=== PATIENT | female | born 1980 | race Asian ===

== ENCOUNTER 2025-01-02 01:12 | Emergency (ER) | payer MEDICAID, SELFPAY ==
[2025-01-02 01:24] VITALS: BP 169/103; PULSE 112; RESP 18; TEMP 37.1; O2SAT 95; BMI 27.4
--- NOTE | 2025-01-02 01:33 | XR_ITS ---
Examination: PA lateral chest 2 views Technique: Upright PA lateral chest 2 views Exam date and time: January 02, 2025 at 1358 hrs. Indications: Coughing bodyaches 2 days. Findings: Mild prominence of ventricle Suspicious for early pneumonia right base medially No pulmonary edema Impression: Suspicious for early right base pneumonia
--- NOTE | 2025-01-02 01:34 | PD.EDRME ---
Rapid Medical Screening Exam RME Arrival date/time: 01/02/25 01:12 44-year-old female past medical history of hypertension presents emergency department complaining of headache, cough, and bodyaches for 2 days. Chief Complaint: Flu Like Symptoms Time Seen by Provider: 01/02/25 01:24 Vital signs: Vital Signs Temperature 98.8 F 01/02/25 01:24 Pulse Rate 112 H 01/02/25 01:24 Respiratory Rate 18 01/02/25 01:24 Blood Pressure 169/103 H 01/02/25 01:24 Pulse Oximetry (%) 95 01/02/25 01:24 Oxygen Delivery Method Room Air 01/02/25 01:24 Vital signs reviewed by provider: Yes
[2025-01-02] MEDS: ACETAMINOPHEN 500 MG TABLET 1000 MG PO (01:47)
--- NOTE | 2025-01-02 03:07 | PD.EDURI ---
Upper Respiratory Inf. RME/HPI General Chief Complaint: Flu Like Symptoms Stated Complaint: COUGHING,DIFF BREATHING Time Seen by Provider: 01/02/25 01:24 Source: patient Arrival date/time: 01/02/25 01:12 44-year-old female past medical history of hypertension presents emergency department complaining of headache, cough, and bodyaches for 2 days. Patient denies any fever, vomiting, sore throat, or any other associated symptom. Mode of arrival: ambulatory Limitations: no limitations RME / HPI RME / HPI Narrative: 01/02/25 01:12 44-year-old female past medical history of hypertension presents emergency department complaining of headache, cough, and bodyaches for 2 days. Related Data Previous Rx's ?Medication ?Instructions ?Recorded ondansetron 4 mg disintegrating 4 mg PO Q8H PRN nausea and 04/17/19 tablet vomiting #14 tabs sumatriptan succinate 25 mg tablet See Rx Instructions PO .COMPLEX 04/17/19 #14 tabs meloxicam 7.5 mg tablet 7.5 mg PO QDAY #10 tabs 05/07/23 azithromycin 250 mg tablet See Rx Instructions PO .COMPLEX #6 01/02/25 tabs Allergies Allergy/AdvReac Type Severity Reaction Status Date / Time No Known Allergies Allergy Verified 12/25/23 11:27 Review of Systems Review of Systems Systems Reviewed: All systems reviewed, normal except as documented Constitutional Constitutional: Reports system reviewed and no additional complaints, except as documented, Reports body ache(s), Denies chills, Denies fever(s) and Reports headache(s) Eyes Eyes: Reports system reviewed and no additional complaints, except as documented and Denies change in vision ENT Ears, Nose, Mouth, and Throat: Reports system reviewed and no additional complaints, except as documented, Denies disequilibrium, Denies dizziness, Reports headache(s), Denies sore throat and Denies vertigo Cardiovascular Cardiovascular: Reports system reviewed and no additional complaints, except as documented, Denies chest pain and Denies dyspnea Respiratory Respiratory: Reports system reviewed and no additional complaints, except as documented, Denies chest congestion, Reports cough and Denies dyspnea Gastrointestinal Gastrointestinal: Reports system reviewed and no additional complaints, except as documented, Denies abdominal pain, Denies nausea and Denies vomiting Musculoskeletal Musculoskeletal: Reports system reviewed and no additional complaints, except as documented, Denies abnormal gait and Denies arthralgias Integumentary/Breasts Skin/Breast: Reports system reviewed and no additional complaints, except as documented, Denies erythema, Denies rash and Denies wounds Neurologic Neurologic: Reports system reviewed and no additional complaints, except as documented, Denies abnormal gait, Denies disequilibrium, Denies dizziness, Reports headache(s) and Denies vertigo Past Medical History Past Medical History NEUROLOGIC: Positive Neurological Disorders and Migraine CARDIAC: Negative Congestive Heart Failure RESPIRATORY: Negative Chronic Obstructive Pulmonary Disease (COPD) GENITOURINARY: Negative Renal Disease ENDOCRINE: Negative Diabetes Mellitus Type 1 or Diabetes Mellitus Type 2 Social History SMOKING STATUS: Never smoker ED Exam General Limitations: Present no limitations General appearance: Present alert and in no apparent distress Head Head exam: Present atraumatic Eye Eye exam: Present normal appearance, PERRL and EOMI ENT ENT exam: Present normal exam, normal oropharynx and mucous membranes moist Neck Neck exam: Present normal inspection, full ROM and trachea midline Chest Chest inspection: Present normal inspection and symmetric chest wall rise Respiratory Respiratory exam: Present normal lung sounds bilaterally Cardiovascular Cardiovascular exam: Present regular rate, normal rhythm and normal heart sounds Abdominal Exam Abdominal exam: Present soft and normal bowel sounds Extremities Exam Extremities exam: Present normal inspection and full ROM Back Exam Back exam: Present normal inspection and full ROM Neurological Exam Neurological exam: Present alert, oriented X3 and CN II-XII intact Psychiatric Psychiatric exam: Present normal affect and normal mood Skin Skin exam: Present warm, dry, intact and normal color Course Quality Measures none Orders Category Date Time Status Bedside COVID-19 Antigen Test NOW Care 01/02/25 01:33 Active Bedside Influenza A&B Antigen Test NOW Care 01/02/25 01:33 Completed XR chest 2V Stat Exams 01/02/25 01:33 Taken Acetaminophen Tab [Tylenol ES Tab] Med 01/02/25 01:33 Discontinued 1,000 mg PO X1 ONE Ketorolac Inj [Toradol Inj] Med 01/02/25 01:33 Discontinued 30 mg IM X1 ONE Vital Signs Vital signs: Vital Signs Temperature 98.8 F 01/02/25 01:24 Pulse Rate 112 H 01/02/25 01:24 Respiratory Rate 18 01/02/25 01:24 Blood Pressure 169/103 H 01/02/25 01:24 Pulse Oximetry (%) 95 01/02/25 01:24 Oxygen Delivery Method Room Air 01/02/25 01:24 95% room air within normal limits Upper Respiratory Infection MDM Narrative MDM Narrative:: 44-year-old female past medical history of hypertension presents emergency department complaining of headache, cough, and bodyaches for 2 days. Patient denies any fever, vomiting, sore throat, or any other associated symptom. Influenza and COVID-negative. Chest x-ray right lower lobe pneumonia based on my interpretation. Will treat patient with oral antibiotic and instructed to have close follow-up with primary care provider in 2 to 3 days. Instructed to return to emergency department for any worsening symptoms or as needed. Patient data External records reviewed:: [facility] previous records Clinical information provided by:: patient Social determinants that could affect healthcare access:: none Patient has the following chronic illnesses:: Hypertensive How is presenting disease/condition affected by chronic disease/condition?: uneffected by Evaluation data The following diagnostics were reviewed and interpreted by me:: lab results and radiology exam(s) Lab and/or radiology exams considered but not ordered:: Ordered Interpretation Summary: Interpreted by me Medications / Prescriptions Medications or Prescriptions considered but not ordered:: Ordered Medication administrations:: Medication Administration History Discontinued Medications Acetaminophen (Acetaminophen 500 Mg Tablet) 1,000 mg PO X1 ONE Stop: 01/02/25 01:34 Last Admin: 01/02/25 01:47 Dose: 1,000 mg Documented By: YARA Ketorolac Tromethamine (Ketorolac Inj 60 Mg/2 Ml Vial) 30 mg IM X1 ONE Stop: 01/02/25 01:34 Last Admin: 01/02/25 01:48 Dose: Not Given Documented By: YARA Non-Admin Reason: Patient Refused Given Consultations Consultation(s) initiated? (list below): No Diagnosis Upper Respiratory Differential Diagnosis: upper respiratory infection, otitis media, sinusitis, viral infection, bronchitis, influenza and pharyngitis Most likely diagnosis given after review of the tests above:: Pneumonia Admission Indicated Admission indicated?: not indicated Admission Request Was there a request for admission?: No Disposition Plan Disposition Plan: Discharge Discharge Attestation Discharge Attestation: The patient and all family members were given an opportunity to ask questions and understood the discharge instructions. Discharge instructions specifically effects, indications for sooner follow up or return to the emergency department, and the expected course of current diagnosis. Patient condition: Stable Discharge Plan Plan Patient Disposition: HOME (Self Care) Disposition Comment: Stable Prescriptions/Referrals Prescriptions/Med Rec: New azithromycin 250 mg tablet See Rx Instructions .ROUTE .COMPLEX Qty: 6 0RF Rx Instructions: For 250 mg dose pack: take 500 mg today (day 1), then 250 mg for 4 days (days 2-5) No Action sumatriptan succinate 25 mg tablet See Rx Instructions .ROUTE .COMPLEX Qty: 14 0RF Rx Instructions: take 1 tab at onset of headache; if no relief may repeat 1 tab in 2hr; max = 4 tabs/day (24hr) ondansetron 4 mg tablet,disintegrating 4 mg PO Q8H PRN (Reason: nausea and vomiting) Qty: 14 0RF meloxicam 7.5 mg tablet 7.5 mg PO QDAY Qty: 10 0RF Problem List Clinical Impression: Pneumonia Patient/Caregiver Discharge Instructions Discharge Activity: activity as tolerated Education Materials: ED Pneumonia (Adult) Additional Instructions: Drink plenty of fluids and get plenty of rest. Take Tylenol and ibuprofen as needed for fever or pain. Take antibiotics as prescribed. Follow-up with primary care provider in 2 to 3 days. Return to emergency department for any worsening symptoms or as needed. Print Language: Tajik Stand Alone Forms: Moira Award Info., Patient Portal Info Letter PA/INTERLINE CLERK Supervising Physician PA/INTERLINE CLERK Supervising Physician: Dr. Cornejo
== END 2025-01-02 03:22 | disposition home or self-care (01) ==
LOC: SERX 03:23
PROVIDERS: Emergency Provider Emergency Medicine
DX: J18.9 Pneumonia, unspecified organism (principal); I10 Essential (primary) hypertension
CPT/HCPCS: 71046; 87400; 87811; 99283; A9270

== ENCOUNTER 2025-01-05 02:33 | Emergency (ER) | payer MEDICAID, SELFPAY ==
[2025-01-05 02:33] VITALS: BMI 31.3
[2025-01-05 02:45] VITALS: BP 173/132; BP 188/155; PULSE 89; RESP 18; TEMP 36.7; O2SAT 98
--- NOTE | 2025-01-05 02:53 | PD.EDSOB ---
ED SOB =RME/HPI General Chief Complaint: Shortness of Breath/Dyspnea Stated Complaint: DIFF BREATHING Time Seen by Provider: 01/05/25 02:51 Arrival date/time: 01/05/25 02:33 44F with history of HTN presents to ED with cough and some SOB. Patient was diagnosed with PNA here several days ago and given a Z-sylvia, which patient has been taking. Patient denies CP. Limitations: no limitations Related Data Previous Rx's ?Medication ?Instructions ?Recorded ondansetron 4 mg disintegrating 4 mg PO Q8H PRN nausea and 04/17/19 tablet vomiting #14 tabs sumatriptan succinate 25 mg tablet See Rx Instructions PO .COMPLEX 04/17/19 #14 tabs meloxicam 7.5 mg tablet 7.5 mg PO QDAY #10 tabs 05/07/23 azithromycin 250 mg tablet See Rx Instructions PO .COMPLEX #6 01/02/25 tabs albuterol sulfate 90 mcg/actuation 2 puff inhalation Q6H PRN 01/05/25 aerosol inhaler (Ventolin HFA) shortness of breath or wheezing #8.5 grams Allergies Allergy/AdvReac Type Severity Reaction Status Date / Time No Known Allergies Allergy Verified 01/05/25 02:35 Review of Systems Review of Systems Systems Reviewed: All systems reviewed, normal except as documented Constitutional Constitutional: Reports system reviewed and no additional complaints, except as documented, Denies fever(s) and Denies headache(s) ENT Ears, Nose, Mouth, and Throat: Denies disequilibrium and Denies headache(s) Cardiovascular Cardiovascular: Reports system reviewed and no additional complaints, except as documented, Denies chest pain and Reports dyspnea Respiratory Respiratory: Reports system reviewed and no additional complaints, except as documented, Reports as per HPI, Reports cough and Reports dyspnea Gastrointestinal Gastrointestinal: Reports system reviewed and no additional complaints, except as documented, Denies abdominal pain, Denies nausea and Denies vomiting Neurologic Neurologic: Reports system reviewed and no additional complaints, except as documented, Denies confusion, Denies disequilibrium and Denies headache(s) Psychiatric Psychiatric: Denies confusion Past Medical History Past Medical History NEUROLOGIC: Positive Neurological Disorders and Migraine CARDIAC: Negative Congestive Heart Failure RESPIRATORY: Negative Chronic Obstructive Pulmonary Disease (COPD) GENITOURINARY: Negative Renal Disease ENDOCRINE: Negative Diabetes Mellitus Type 1 or Diabetes Mellitus Type 2 Social History SMOKING STATUS: Never smoker ED Exam General Limitations: Present no limitations General appearance: Present alert and in no apparent distress Head Head exam: Present atraumatic Eye Eye exam: Present normal appearance, PERRL and EOMI ENT ENT exam: Present normal exam, normal oropharynx and mucous membranes moist Neck Neck exam: Present normal inspection, full ROM and trachea midline Chest Chest inspection: Present normal inspection and symmetric chest wall rise Respiratory Respiratory exam: Present normal lung sounds bilaterally Cardiovascular Cardiovascular exam: Present regular rate, normal rhythm and normal heart sounds Abdominal Exam Abdominal exam: Present soft and normal bowel sounds Extremities Exam Extremities exam: Present normal inspection and full ROM Back Exam Back exam: Present normal inspection and full ROM Neurological Exam Neurological exam: Present alert, oriented X3 and CN II-XII intact Psychiatric Psychiatric exam: Present normal affect and normal mood Skin Skin exam: Present warm, dry, intact and normal color Course Quality Measures none Orders Category Date Time Status EKG (ED ONLY) *Do not use* NOW Care 01/05/25 02:56 Completed EKG (ED Only) Stat Exams 01/05/25 02:56 Ordered Albuterol/Ipratr Rt Chioma [Duoneb Rt Chioma] Med 01/05/25 02:51 Discontinued 3 ml INH X1 ONE Dexamethasone Inj [Decadron Inj] Med 01/05/25 02:51 Discontinued 10 mg PO X1 ONE cefTRIAXone [Rocephin] 1,000 mg Med 01/05/25 02:51 Discontinued Lidocaine 1% 20 ml [Xylocaine 1% 20 ML] 2.1 ml IM X1 Vital Signs Vital signs: Vital Signs Temperature 98.0 F 01/05/25 02:45 Pulse Rate 89 01/05/25 02:45 Respiratory Rate 18 01/05/25 02:45 Blood Pressure 188/155 H 01/05/25 02:45 Pulse Oximetry (%) 98 01/05/25 02:45 Oxygen Delivery Method Room Air 01/05/25 02:45 O2 at 98% on RA and WNLs Shortness of Breath / Dyspnea MDM Narrative MDM Narrative:: 44F with history of HTN presents to ED with cough and some SOB. Patient was diagnosed with PNA here several days ago and given a Z-sylvia, which patient has been taking. Patient denies CP. Physical exam reveals clear ENT and lungs. Patient is afebrile, calm, and alert. Normal WOB. EKG is NSR with L-axis deviation, which was present on previous EKG. Meds improved symptoms. Given early PNA, will reinforce with Rocephin but no additional oupatient ABX. Patient data External records reviewed:: [facility] previous records Clinical information provided by:: patient Social determinants that could affect healthcare access:: none Patient has the following chronic illnesses:: HTN How is presenting disease/condition affected by chronic disease/condition?: exacerbated by Evaluation data The following diagnostics were reviewed and interpreted by me:: EKG tracing(s) Lab and/or radiology exams considered but not ordered:: ordered Interpretation Summary: above Medications / Prescriptions Medications or Prescriptions considered but not ordered:: ordered Medication administrations:: Medication Administration History Discontinued Medications Albuterol/Ipratropium (Albuterol/Ipratropium (Duoneb) Rt Chioma 3 Ml Nebu) 3 ml INH X1 ONE Stop: 01/05/25 02:52 Last Admin: 01/05/25 03:16 Dose: 3 ml Documented By: NE Ceftriaxone Sodium 1,000 mg/ (Lidocaine HCl 2.1 ml) 0 mg IM X1 ONE Stop: 01/05/25 02:52 Last Admin: 01/05/25 03:14 Dose: 1,000 mg Documented By: CVL Dexamethasone Sodium Phosphate (Dexamethasone Sod Phos Inj 10 Mg/Ml Vial) 10 mg PO X1 ONE Stop: 01/05/25 02:52 Last Admin: 01/05/25 03:14 Dose: 10 mg Documented By: CVL above Consultations Consultation(s) initiated? (list below): No Diagnosis Shortness of Breath Differential Diagnosis: acute exacerbation of chronic obstructive airways disease, congestive heart failure, community acquired pneumonia, asthma with exacerbation and pulmonary embolism Most likely diagnosis given after review of the tests above:: CAP Admission Indicated Admission indicated?: not indicated Admission Request Was there a request for admission?: No Disposition Plan Disposition Plan: Discharge Discharge Attestation Discharge Attestation: The patient and all family members were given an opportunity to ask questions and understood the discharge instructions. Discharge instructions specifically effects, indications for sooner follow up or return to the emergency department, and the expected course of current diagnosis. Patient condition: Stable Discharge Plan Plan Patient Disposition: HOME (Self Care) Disposition Comment: Stable Prescriptions/Referrals Prescriptions/Med Rec: New albuterol sulfate [Ventolin HFA] 90 mcg/actuation HFA aerosol inhaler 2 puff inhalation Q6H PRN (Reason: shortness of breath or wheezing) Qty: 8.5 0RF Rx Instructions: w/ education please No Action sumatriptan succinate 25 mg tablet See Rx Instructions .ROUTE .COMPLEX Qty: 14 0RF Rx Instructions: take 1 tab at onset of headache; if no relief may repeat 1 tab in 2hr; max = 4 tabs/day (24hr) ondansetron 4 mg tablet,disintegrating 4 mg PO Q8H PRN (Reason: nausea and vomiting) Qty: 14 0RF meloxicam 7.5 mg tablet 7.5 mg PO QDAY Qty: 10 0RF azithromycin 250 mg tablet See Rx Instructions .ROUTE .COMPLEX Qty: 6 0RF Rx Instructions: For 250 mg dose pack: take 500 mg today (day 1), then 250 mg for 4 days (days 2-5) Referrals: Oli Sheth MD [Primary Care Provider] - In 1 week Problem List Clinical Impression: Community acquired pneumonia Patient/Caregiver Discharge Instructions Education Materials: ED Pneumonia (Adult) Additional Instructions: Please follow-up with PCP within 24-48 hours and return immediately if symptoms worsen. Ibuprofen/Tylenol can be used simultaneously for greater fever/pain control. Benadryl is good for cough, congestion, and sleep. Finish ABX. Print Language: Armenian Stand Alone Forms: Patient Portal Info Letter SASCHA/RAVEN Supervising Physician SASCHA/RAVEN Supervising Physician: Dr. Stewart
[2025-01-05] MEDS: DEXAMETHASONE SOD PHOS INJ 10 MG/ML VIAL PO (03:14)
[2025-01-05] MEDS: cefTRIAXone 1,000 MG, LIDOCAINE 1% 20 ML 2.1 ML IM (03:14)
[2025-01-05] MEDS: ALBUTEROL/IPRATROPIUM (Duoneb) RT SOL 3 ML NEBU INH (03:16)
[2025-01-05 03:18] VITALS: PULSE 87; RESP 20; O2SAT 98
[2025-01-05 03:42] VITALS: RESP 18
== END 2025-01-05 03:43 | disposition home or self-care (01) ==
PROVIDERS: Emergency Provider Emergency Medicine; PCP Family Medicine
DX: J18.9 Pneumonia, unspecified organism (principal); I10 Essential (primary) hypertension
CPT/HCPCS: 93005; 94640; 96372; 99283; A9270; J0696; J1100; J3490

== ENCOUNTER 2025-07-06 23:10 | Emergency (ER) | payer MEDICAID, SELFPAY ==
[2025-07-06 23:12] VITALS: BMI 29.2
[2025-07-06 23:29] VITALS: BP 168/96; PULSE 103; RESP 22; TEMP 37.1; O2SAT 97
--- NOTE | 2025-07-06 23:36 | XR_ITS ---
Examination: PA lateral chest 2 views TECHNIQUE: Upright PA and lateral chest 2 views Date and time: July 07, 2025 0015 hours INDICATION: Cough and shortness breath beginning 3 days ago. FINDINGS: Minor prominence left ventricle. No pneumonia or pulmonary edema. The osseous structures are intact IMPRESSION: No active disease
--- NOTE | 2025-07-07 05:04 | PD.EDURI ---
Upper Respiratory Inf. RME/HPI General Chief Complaint: Flu Like Symptoms Stated Complaint: COUGH SOB Time Seen by Provider: 07/06/25 23:52 Arrival date/time: 07/06/25 23:10 45F with no significant PMH presents to ED with several days of cough, intermittent SOB, and fevers/chills. While waiting in waiting room, patient developed a nosebleed. Limitations: no limitations Related Data Previous Rx's ?Medication ?Instructions ?Recorded ondansetron 4 mg disintegrating 4 mg PO Q8H PRN nausea and 04/17/19 tablet vomiting #14 tabs sumatriptan succinate 25 mg tablet See Rx Instructions PO .COMPLEX 04/17/19 #14 tabs meloxicam 7.5 mg tablet 7.5 mg PO QDAY #10 tabs 05/07/23 azithromycin 250 mg tablet See Rx Instructions PO .COMPLEX #6 01/02/25 tabs albuterol sulfate 90 mcg/actuation 2 puff inhalation Q6H PRN 01/05/25 aerosol inhaler (Ventolin HFA) shortness of breath or wheezing #8.5 grams Allergies Allergy/AdvReac Type Severity Reaction Status Date / Time No Known Allergies Allergy Verified 07/06/25 23:15 Review of Systems Review of Systems Systems Reviewed: All systems reviewed, normal except as documented Constitutional Constitutional: Reports system reviewed and no additional complaints, except as documented, Reports as per HPI, Reports chills, Reports fever(s) and Denies headache(s) ENT Ears, Nose, Mouth, and Throat: Denies disequilibrium and Denies headache(s) Cardiovascular Cardiovascular: Reports system reviewed and no additional complaints, except as documented, Denies chest pain and Reports dyspnea Respiratory Respiratory: Reports system reviewed and no additional complaints, except as documented, Reports as per HPI, Reports cough and Reports dyspnea Gastrointestinal Gastrointestinal: Reports system reviewed and no additional complaints, except as documented, Denies abdominal pain, Denies nausea and Denies vomiting Neurologic Neurologic: Reports system reviewed and no additional complaints, except as documented, Denies confusion, Denies disequilibrium and Denies headache(s) Psychiatric Psychiatric: Denies confusion Past Medical History Past Medical History NEUROLOGIC: Positive Neurological Disorders and Migraine CARDIAC: Negative Congestive Heart Failure RESPIRATORY: Negative Chronic Obstructive Pulmonary Disease (COPD) GENITOURINARY: Negative Renal Disease ENDOCRINE: Negative Diabetes Mellitus Type 1 or Diabetes Mellitus Type 2 Social History SMOKING STATUS: Never smoker ED Exam General Limitations: Present no limitations General appearance: Present alert and in no apparent distress Head Head exam: Present atraumatic Eye Eye exam: Present normal appearance, PERRL and EOMI ENT ENT exam: Present normal oropharynx and mucous membranes moist Expanded ENT Exam Nasal speculum exam: Right: epistaxis Neck Neck exam: Present normal inspection, full ROM and trachea midline Chest Chest inspection: Present normal inspection and symmetric chest wall rise Respiratory Respiratory exam: Present normal lung sounds bilaterally Cardiovascular Cardiovascular exam: Present regular rate, normal rhythm and normal heart sounds Abdominal Exam Abdominal exam: Present soft and normal bowel sounds Extremities Exam Extremities exam: Present normal inspection and full ROM Back Exam Back exam: Present normal inspection and full ROM Neurological Exam Neurological exam: Present alert, oriented X3 and CN II-XII intact Psychiatric Psychiatric exam: Present normal affect and normal mood Skin Skin exam: Present warm, dry, intact and normal color Course Quality Measures none Orders Category Date Time Status Bedside COVID-19 Antigen Test NOW Care 07/06/25 23:53 Completed Bedside Influenza A&B Antigen Test NOW Care 07/06/25 23:53 Completed XR chest 2V Stat Exams 07/06/25 23:36 Taken Vital Signs Vital signs: Vital Signs Temperature 98.8 F 07/06/25 23:29 Pulse Rate 103 H 07/06/25 23:29 Respiratory Rate 22 H 07/06/25 23:29 Blood Pressure 168/96 H 07/06/25 23:29 Pulse Oximetry (%) 97 07/06/25 23:29 Oxygen Delivery Method Room Air 07/06/25 23:29 O2 at 97% on RA and WNLs Upper Respiratory Infection MDM Narrative MDM Narrative:: 45F with no significant PMH presents to ED with several days of cough, intermittent SOB, and fevers/chills. While waiting in waiting room, patient developed a nosebleed. Physical exam reveals R nosebleed, but otherwise clear oropharynx and lungs. Normal WOB. Patient is afebrile, calm, and alert. Swabs neg. Wet CXR no gross PNA pending official report. Nosebleed stopped with pressure. Patient data External records reviewed:: [facility] previous records Clinical information provided by:: patient Social determinants that could affect healthcare access:: none Patient has the following chronic illnesses:: none How is presenting disease/condition affected by chronic disease/condition?: no chronic disease Evaluation data The following diagnostics were reviewed and interpreted by me:: lab results and radiology exam(s) Lab and/or radiology exams considered but not ordered:: ordered Interpretation Summary: above Medications / Prescriptions Medications or Prescriptions considered but not ordered:: not ordered Medication administrations:: n/a Consultations Consultation(s) initiated? (list below): No Diagnosis Upper Respiratory Differential Diagnosis: upper respiratory infection, croup, otitis media, sinusitis, viral infection, bronchitis, influenza, pharyngitis and other (epistaxis) Most likely diagnosis given after review of the tests above:: epistaxis and URI Admission Indicated Admission indicated?: not indicated Admission Request Was there a request for admission?: No Disposition Plan Disposition Plan: Discharge Discharge Attestation Discharge Attestation: The patient and all family members were given an opportunity to ask questions and understood the discharge instructions. Discharge instructions specifically effects, indications for sooner follow up or return to the emergency department, and the expected course of current diagnosis. Patient condition: Stable Discharge Plan Plan Patient Disposition: HOME (Self Care) Discharge Disposition comment: Stable Prescriptions/Referrals Prescriptions/Med Rec: No Action sumatriptan succinate 25 mg tablet See Rx Instructions .ROUTE .COMPLEX Qty: 14 0RF Rx Instructions: take 1 tab at onset of headache; if no relief may repeat 1 tab in 2hr; max = 4 tabs/day (24hr) ondansetron 4 mg tablet,disintegrating 4 mg PO Q8H PRN (Reason: nausea and vomiting) Qty: 14 0RF meloxicam 7.5 mg tablet 7.5 mg PO QDAY Qty: 10 0RF azithromycin 250 mg tablet See Rx Instructions .ROUTE .COMPLEX Qty: 6 0RF Rx Instructions: For 250 mg dose pack: take 500 mg today (day 1), then 250 mg for 4 days (days 2-5) albuterol sulfate [Ventolin HFA] 90 mcg/actuation HFA aerosol inhaler 2 puff inhalation Q6H PRN (Reason: shortness of breath or wheezing) Qty: 8.5 0RF Rx Instructions: w/ education please Referrals: Oli Sheth MD [Primary Care Provider] - In 1 week Problem List Clinical Impression: Upper respiratory infection, Epistaxis Patient/Caregiver Discharge Instructions Education Materials: ED Epistaxis (Adult), ED URI, Viral, No Abx (Adult) Additional Instructions: Please follow-up with PCP within 24-48 hours and return immediately if symptoms worsen. Ibuprofen/Tylenol can be used simultaneously for greater fever/pain control. Benadryl is good for cough, congestion, and sleep. Print Language: Occitan Stand Alone Forms: Patient Portal Info Letter PA/METAL PUNCH PRESS OPERATOR Supervising Physician PA/METAL P[employer]CH PRESS OPERATOR Supervising Physician: Dr. Christopher
== END 2025-07-07 02:22 | disposition home or self-care (01) ==
PROVIDERS: Emergency Provider Emergency Medicine; PCP Family Medicine
DX: J06.9 Acute upper respiratory infection, unspecified (principal); R04.0 Epistaxis
CPT/HCPCS: 71046; 87400; 87811; 99283

== ENCOUNTER 2025-09-22 00:21 | Emergency (ER) | payer MEDICAID, SELFPAY ==
[2025-09-22 00:32] VITALS: BP 160/114; BP 160/118; PULSE 108; RESP 18; TEMP 36.9; O2SAT 98
--- NOTE | 2025-09-22 00:57 | EDNOTE_ITS ---
ED Epistaxis RME/HPI General Chief complaint: Epistaxis/Nasal Foreign Body Stated complaint: NOSE BLEED X2 HOURS Time Seen by Provider: 09/22/25 00:47 Arrival date/time: 09/22/25 00:21 45F with history of HTN (not on meds) presents to ED with spontaneous nosebleed for several hours. Bleeding stopped prior to arrival in ED. Patient was preemptive cauterization. Limitations: no limitations Related Data Previous Rx's ?Medication ?Instructions ?Recorded ondansetron 4 mg disintegrating 4 mg PO Q8H PRN nausea and 04/17/19 tablet vomiting #14 tabs sumatriptan succinate 25 mg tablet See Rx Instructions PO .COMPLEX 04/17/19 #14 tabs meloxicam 7.5 mg tablet 7.5 mg PO QDAY #10 tabs 04/23 04/14 azithromycin 250 mg tablet See Rx Instructions PO .COM PLEX #6 01/02/25 tabs albuterol sulfate 90 mcg/actuation 2 puff inhalation Q 6H PRN 01/05/25 aerosol inhaler (Ventolin HFA) shortness of breath or wheezing #8.5 grams Allergies Allergy/AdvReac Type Severity Reaction Status Date / Time No Known Allergies Allergy Verified 09/22/25 00:22 Review of Systems Review of Systems Systems Reviewed: All systems reviewed, normal except as documented ENT Ears, Nose, Mouth, and Throat: Reports as per HPI and Reports epistaxis Past Medical History Past Medical History NEUROLOGIC: Positive Neurological Disorders and Migraine CARDIAC: Negative Congestive Heart Failure RESPIRATORY: Negative Chronic Obstructive Pulmonary Disease (COPD) GENITOURINARY: Negative Renal Disease ENDOCRINE: Negative Diabetes Mellitus Type 1 or Diabetes Mellitus Type 2 Social History SMOKING STATUS: Never smoker ED Exam General Limitations: Present no limitations General appearance: Present alert and in no apparent distress Head Head exam: Present atraumatic ENT ENT exam: Present mucous membranes moist Expanded ENT Exam Nasal speculum exam: Bilateral: epistaxis (raw skin) Neck Neck exam: Present normal inspection, full ROM and trachea midline Chest Chest inspection: Present normal inspection and symmetric chest wall rise Neurological Exam Neurological exam: Present alert and oriented X3 Psychiatric Psychiatric exam: Present normal affect and normal mood Skin Skin exam: Present warm, dry, intact and normal color Course Quality Measures none Orders Category Date Time Status Silver Nitrate Applicators Med 09/22/25 00:47 Discontinued 2 appl TOP X1 ONE Vital Signs Vital signs: Vital Signs Temperature 98.5 F 09/22/25 00:32 Pulse Rate 108 H 09/22/25 00:32 Respiratory Rate 18 09/22/25 00:32 Blood Pressure 160/118 H 09/22/25 00:32 Pulse Oximetry (%) 98 09/22/25 00:32 Oxygen Delivery Method Room Air 09/22/25 00:32 O2 at 98% on RA and WNLs Epistaxis MDM Narrative MDM Narrative:: 45F with history of HTN (not on meds) presents to ED with spontaneous nosebleed for several hours. Bleeding stopped prior to arrival in ED. Patient was preemptive cauterization. Physical exam reveals bilateral raw skin in nares. Patient is afebrile, calm, and alert. Cauterization done. Counseled to get more HTN meds for BP because patient ran out. Patient data External records reviewed:: [facility] previous records Clinical information provided by:: patient Social determinants that could affect healthcare access:: none Patient has the following chronic illnesses:: HTN How is presenting disease/condition affected by chronic disease/condition?: exacerbated by Evaluation data The following diagnostics were reviewed and interpreted by me:: other (specify) (none) Lab and/or radiology exams considered but not ordered:: not ordered Interpretation Summary: n/a Medications / Prescriptions Medications or Prescriptions considered but not ordered:: ordered Medication administrations:: Medication Administration History Discontinued Medications Silver Nitrate (Silver Nitrate 1 Appl Ea) 2 appl TOP X1 ONE Stop: 09/22/25 00:48 above Consultations Consultation(s) initiated? (list below): No Diagnosis Epistaxis Differential Diagnosis: nasal bone fracture, anterior epistaxis, posterior epistaxis and other (HTN) Most likely diagnosis given after review of the tests above:: HTN and epistaxis Admission Indicated Admission indicated?: not indicated Admission Request Was there a request for admission?: No Disposition Plan Disposition Plan: Discharge Discharge Attestation Discharge Attestation: The patient and all family members were given an opportunity to ask questions and understood the discharge instructions. Discharge instructions specifically effects, indications for sooner follow up or return to the emergency department, and the expected course of current diagnosis. Patient condition: Stable Discharge Plan Plan Patient Disposition: HOME (Self Care) Discharge Disposition comment: Stable Prescriptions/Referrals Prescriptions/Med Rec: No Action sumatriptan succinate 25 mg tablet See Rx Instructions .ROUTE .COMPLEX Qty: 14 0RF Rx Instructions: take 1 tab at onset of headache; if no relief may repeat 1 tab in 2hr; max = 4 tabs/day (24hr) ondansetron 4 mg tablet,disintegrating 4 mg PO Q8H PRN (Reason: nausea and vomiting) Qty: 14 0RF meloxicam 7.5 mg tablet 7.5 mg PO QDAY Qty: 10 0RF azithromycin 250 mg tablet See Rx Instructions .ROUTE .COMPLEX Qty: 6 0RF Rx Instructions: For 250 mg dose pack: take 500 mg today (day 1), then 250 mg for 4 days (days 2-5) albuterol sulfate [Ventolin HFA] 90 mcg/actuation HFA aerosol inhaler 2 puff inhalation Q6H PRN (Reason: shortness of breath or wheezing) Qty: 8.5 0RF Rx Instructions: w/ education please Problem List Clinical Impression: HTN (hypertension), Epistaxis Patient/Caregiver Discharge Instructions Education Materials: ED Epistaxis (Adult), ED Hypertension, Established Additional Instructions: Please follow-up with PCP within 24-48 hours and return immediately if symptoms worsen. Make sure to get more BP meds from PCP. Print Language: French Stand Alone Forms: Patient Portal Info Letter SASCHA/RAVEN Supervising Physician SASCHA/RAVEN Supervising Physician: Dr. Christopher
[2025-09-22] MEDS: SILVER NITRATE 1 APPL EA 2 APPL TOP (01:05)
== END 2025-09-22 01:05 | disposition home or self-care (01) ==
LOC: SERX 01:17
PROVIDERS: Emergency Provider Emergency Medicine; PCP Family Medicine
DX: T17.1XXA Foreign body in nostril, initial encounter (principal); I10 Essential (primary) hypertension; R04.0 Epistaxis; W44.9XXA Unspecified foreign body entering into or through a natural orifice, initial encounter
CPT/HCPCS: 99282